=== PATIENT | female | born 1965 | race Two or more races ===

== ENCOUNTER 2016-05-16 14:38 | Emergency (ER) | payer MEDICARE, MEDICAID ==
[~2016-05-16] VITALS: Ht 157.5 cm; Wt 158.8 kg
[~2016-05-16 14:38] MED LIST: DEPAKOTE250 MG PO; IBUPROFEN600 MG ORAL; NKM; QUETIAPINE FUMA25 MG ORAL
--- NOTE | 2016-05-16 14:49 | Emergency Room Report ---
History of Present Illness General Chief Complaint: Behavioral Complaint Source: Medical Record Present Illness HPI The patient was being transported from us [facility] to assisted living. When she got to assisted living she refused to get off the gurney and stated she refused to stay there. The place where she came from refused to take her back. She was brought to us by EMS. The patient denies suicidal or homicidal ideation. She is stating she is ambulatory wants to walk out. Allergies: Coded Allergies: HALOPERIDOL (Verified Allergy, Unknown, 11/19/15) Patient History Past Medical History: see triage record Social History Narrative from [place] as was to go to and . Reviewed Nursing Documentation: PMH: Agreed, PSxH: Agreed Nursing Documentation-PMH Hx Hypertension: Yes Hx Gastrointestinal Problems: Yes - GERD History Of Psychiatric Problem: Yes - Schizo-affective Hx Seizures: Yes Medical Decision Making PA Attestation Patient refused Diagnostic Impression: Primary Impression: Behavioral disorder ER Course The patient is here for a medically stable. I contacted her private physician to request what he wants to do. [facility] will take the patient. Status: unchanged Disposition: XFER SHT-TRM HOSP Condition: Stable Henry Boland M.D. May 16, 2016 14:49
[2016-05-16] MEDS: QUEtiapine 200mg tab ORAL STA ×2 (16:21→16:24)
[2016-05-16 17:15] VITALS: BP 0/0
== END 2016-05-16 17:20 | disposition short-term general hospital (02) ==
LOC: EDBD 14:38 → EMR 14:55
DX: F91.9 Conduct disorder, unspecified (principal); F25.9 Schizoaffective disorder, unspecified; Z88.8 Allergy status to other drugs, medicaments and biological substances; I10 Essential (primary) hypertension; K21.9 Gastro-esophageal reflux disease without esophagitis
CPT/HCPCS: 99285

== ENCOUNTER 2016-12-10 21:43 | Emergency (ER) | payer MEDICARE, MEDICAID ==
[~2016-12-10] VITALS: Ht 160 cm; Wt 136.1 kg
--- NOTE | 2016-12-10 21:47 | Emergency Room Report ---
History of Present Illness General Chief Complaint: Diarrhea Source: Patient, EMS Present Illness HPI Is a 50-year-old female who initially told me she has no past medical history. [facility] EMS said she has history of hypertension and CHF. She presents with chief complaint abdominal pain with nausea vomiting and diarrhea. Onset for last 2 days. No fever or chills. No pain. Per EMS, she called the multiple times in the past. On arrival patient said she doesn't want to stay anymore. She wants to leave. She got into her wheelchair and left the ER. Allergies: Coded Allergies: HALOPERIDOL (Verified Allergy, Unknown, 11/19/15) Patient History Past Medical History: see triage record, old chart reviewed, psych hx Past Surgical History: other Pertinent Family History: none Social History: Reports: smoking Now: No Immunizations: other Reviewed Nursing Documentation: PMH: Agreed, PSxH: Agreed Nursing Documentation-PMH Hx Hypertension: Yes Hx Seizures: Yes Review of Systems Eye: Denies: eye pain, blurred vision ENT: Denies: ear pain, nose congestion, throat swelling Respiratory: Denies: cough, shortness of breath Cardiovascular: Denies: chest pain, palpitations Gastrointestinal: Reports: diarrhea, nausea, vomiting, Denies: abdominal pain Musculoskeletal: Denies: back pain, joint pain Skin: Denies: rash Neurological: Denies: headache, numbness Endocrine: Denies: increased thirst, increased urine Hematologic/Lymphatic: Denies: easy bruising All Other Systems: negative except mentioned in HPI Physical Exam vitals unremarkable Sp02 EP Interpretation: reviewed, normal General Appearance: well appearing, no apparent distress, alert, obese Head: normocephalic, atraumatic Eyes: bilateral eye PERRL, bilateral eye EOMI ENT: hearing grossly normal, normal pharynx Neck: full range of motion, supple, no meningismus Respiratory: chest non-tender, lungs clear, normal breath sounds Cardiovascular #1: regular rate, rhythm, no murmur Gastrointestinal: normal bowel sounds, non tender, no mass, no organomegaly, no bruit, non-distended Musculoskeletal: back normal, normal range of motion, other - In wheelchair Neurologic: alert, oriented x3 Skin: warm/dry Medical Decision Making Diagnostic Impression: Primary Impression: Nausea vomiting and diarrhea Additional Impression: Morbid obesity with BMI of 50.0-59.9, adult ER Course Patient with vomiting and diarrhea. No vomiting or diarrhea here. Patient is stable. After my exam patient said she wants to leave. I see no criteria for 5150. Patient said she's not homeless. No evidence of acute abdomen. Status: unchanged Disposition: HOME, SELF-CARE Condition: Stable LISSY ARCE M.D. Dec 10, 2016 21:47
[2016-12-10 22:07] VITALS: BP 0/0
== END 2016-12-10 22:07 | disposition home or self-care (01) ==
LOC: EDBD 21:43 → EMR 21:49
DX: R11.2 Nausea with vomiting, unspecified (principal); R19.7 Diarrhea, unspecified; E66.01 Morbid (severe) obesity due to excess calories; Z68.43 Body mass index [BMI] 50.0-59.9, adult; I10 Essential (primary) hypertension; F17.200 Nicotine dependence, unspecified, uncomplicated
CPT/HCPCS: 99282